=== PATIENT | female | born 1985 | race Caucasian/White ===

== ENCOUNTER 2016-11-27 11:54 | Emergency (ER) | payer OTHER ==
[2016-11-27] MEDS ORDERED: NAPROXEN 250 MG TAB As Ordered ONE (12:28)
--- NOTE | 2016-11-27 14:09 | EDDOCDS ---
Nurse's Notes [facility] Name: Gabriella Escalera Age: 31 yrs Sex: Female : 1985 Arrival Date: 11/27/2016 Time: 11:54 Bed 13 Private MD: NO PRIMARY PHYSICIAN, . Diagnosis: Contusion of right foot Presentation: 11/27 12:11 Presenting complaint: Patient states: Fell getting out of the shower and hit right foot jo3 on toilet. Having pain to dorsal aspect of right foot and difficulty bearing weight. Injury occurred Monday. Adult Sepsis Screening: The patient does not have new or worsening altered mentation. Patient's respiratory rate is less than 22. Systolic blood pressure is greater than 100. Patient has a qSOFA score of 0- Negative Sepsis Screen. Suicide/Homicide risk assessment- the patient denies having any suicidal and/or homicidal ideations and does not present with any other emotional, behavioral or mental health complaints. Status: Patient is not a automotive service director or dependent. Transition of care: patient was not received from another setting of care. 12:11 Acuity: ZULAY Level 4 jo3 12:11 Method Of Arrival: Walkin/Carried/Asstd jo3 Triage Assessment: 12:14 General: Appears in no apparent distress, comfortable, Behavior is appropriate for age, jo3 cooperative, pleasant. Pain: Pain currently is 1 out of 10 on a pain scale. At worst was 10 out of 10 on a pain scale. HIV screening NA for this visit Offered previously. Neurological: Level of Consciousness is awake, alert, Oriented to person, place, time. Respiratory: Airway is patent Respiratory effort is even, unlabored. Derm: Skin is pink, warm & dry. normal. 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 none - PMHx: PCOS; - PSHx: Vessel repair in nose; Tonsillectomy; Adenoidectomy; - Social history: Smoking status: Patient states was never smoker of tobacco. No barriers to communication noted, The patient speaks fluent Wolof, Speaks appropriately for age. - Family history: Not pertinent. - : The pt / caregiver states he / she is not on anticoagulants. Home medication list is obtained from the patient. - Exposure Risk Screening:: None identified. Screenin:24 Screening information is obtained from the patient. Fall risk: No risks identified. dsf Assistance ADL's: requires no assistance with activities of daily living. Abuse/DV Screen: The patient / caregiver reports he/she is: not in a situation that causes fear, pain or injury. Nutritional screening: No deficits noted. Advance Directives: Currently, there is no health care proxy. home support is adequate. Assessment: 12:24 Adult Sepsis Screening: The patient does not have new or worsening altered mentation. dsf Patient's respiratory rate is less than 22. Systolic blood pressure is greater than 100. Patient has a qSOFA score of 0- Negative Sepsis Screen. General: Appears in no apparent distress, Behavior is appropriate for age, cooperative. Pain: Location: dorsum of right foot Pain currently is 1 out of 10 on a pain scale. Quality of pain is described as throbbing, Aggravated by weight bearing. Neurological: Level of Consciousness is awake, alert, Oriented to person, place, time. Cardiovascular: Capillary refill < 3 seconds. Respiratory: Airway is patent Respiratory effort is even, unlabored, Respiratory pattern is regular, symmetrical. Derm: Skin is pink, warm & dry. Musculoskeletal: Circulation, motion, and sensation intact Capillary refill < 3 seconds in right toes Reports pain in dorsum of right foot. 13:33 General: Appears in no apparent distress, Behavior is appropriate for age, cooperative. dsf Neurological: Level of Consciousness is awake, alert. Cardiovascular: Capillary refill < 3 seconds. Respiratory: Airway is patent Respiratory effort is even, unlabored, Respiratory pattern is regular, symmetrical. Derm: Skin is pink, warm & dry. 14:07 General: Appears in no apparent distress, Behavior is cooperative. Pain: Pain currently ld5 is 1 out of 10 on a pain scale. Neurological: Level of Consciousness is awake, confused. Respiratory: Airway is patent Respiratory effort is even, unlabored. Vital Signs: 11:56 BP 162 / 87; Pulse 88; Resp 18 S; Temp 98.1(O); Pulse Ox 100% on R/A; Weight 136.08 kg gr2 (R); Height 5 ft. 6 in. (167.64 cm) (R); Pain 8/10; 14:07 BP 157 / 81; Pulse 81; Resp 18; Temp 98; Pulse Ox 100% on R/A; Pain 1/10; ld5 11:56 Body Mass Index 48.42 (136.08 kg, 167.64 cm) gr2 Vitals: 11:56 Log In Time: November 27, 2016 at 11:56. gr2 ED Course: 11:55 Patient visited by Marcella Goyal. gr2 11:55 Patient moved to Waiting gr2 11:56 NO PRIMARY PHYSICIAN, . is Private Physician. gr2 11:57 Patient moved to Pre RCE mt4 11:58 Patient visited by Marcella Goyal. gr2 12:13 Triage Initiated jo3 12:16 Patient visited by Gabriella Matthews RN. jo3 12:20 Patient moved to 13 kr3 12:21 [facility] le 12:21 Patient visited by Sydney Hope FNP. le 12:21 Patient visited by Sydney Hope FNP. le 12:24 The patient / caregiver is instructed regarding the plan of care and ED course. dsf 12:26 Patient visited by Palak Solis RN. dsf 12:34 Patient visited by Lay Perez PCA. ct3 12:34 Crutch training done. ct3 12:35 Patient moved to Radiology dsf 12:37 Patient moved to 13 dsf 13:04 [facility] Payment Agreement was scanned into [employer] and attached to record. lg 13:34 Patient visited by Palak Solis RN. dsf 13:59 [facility] is Referral Physician. le 13:59 Referral List is Referral Physician. le 14:07 No IV's were initiated during this patient's visit. No procedures done that require ld5 assistance. 14:09 Patient visited by Meliza Denise RN. ld5 Administered Medications: 12:31 Drug: Naproxen 500 mg [naproxen 250 mg tablet (2 tabs)] Route: PO; dsf Order Results: There are currently no results for this order. Outcome: 13:59 Discharge ordered by Provider. le 14:07 Discharge Assessment: Patient awake, alert and oriented x 3. No cognitive and/or ld5 functional deficits noted. Patient verbalized understanding of disposition instructions. patient administered narcotics - no. The following High Risk Discharge criteria are identified: None. Discharged to home ambulatory, with crutches, with significant other. Condition: stable. Discharge instructions given to patient, Instructed on discharge instructions, follow up and referral plans. medication usage, crutch walking, Demonstrated understanding of instructions, crutch walking, Pt was receptive of discharge instructions/ teaching. No special radiology studies were completed. Property :Personal belongings accompany Pt. 14:09 Patient left the ED. ld5 Signatures: Kiki Tomas, Richard Reg Bebe Morales,RN RN kr3 Gabriella MatthewsRN RN jo3 Sydney Hope, CARPENTRY FOREMAN CARPENTRY FOREMAN Cece Quintana mt4 Meliza Denise RN RN ld5 Lay Perez, OVERHEAD CRANE INSPECTOR OVERHEAD CRANE INSPECTOR ct3 Palak Solis,RN RN Marcella Barrow gr2 MTDD
--- NOTE | 2016-11-27 14:09 | EDDOCDS ---
Physician Documentation [facility] Name: Gabriella Escalera Age: 31 yrs Sex: Female : 1985 Arrival Date: 11/27/2016 Time: 11:54 Bed 13 Private MD: NO PRIMARY PHYSICIAN, . Disposition: 11/27 14:02 Critical Care: Critical care not applicable. le Disposition: 11/27/16 13:59 Discharged to Home/Self Care. Impression: Contusion of right foot. - Condition is Stable. - Discharge Instructions: Foot Contusion, Crutch Use. - Medication Reconciliation, Local Pharmacy Hours form. - Follow up: [facility]; When: Call to arrange an appointment; Reason: To establish care. Follow up: Referral List; When: Call to arrange an appointment; Reason: To establish care. - Problem is new. - Symptoms have improved. - Notes: Use Ibuprofen (or other NSAIDS - Aspirin, Aleve, Advil) as needed for pain Return to the ED for any further concerns Historical: - Allergies: No known drug Allergies; - Home Meds: 1. none - PMHx: PCOS; - PSHx: Vessel repair in nose; Tonsillectomy; Adenoidectomy; - Social history: Smoking status: Patient states was never smoker of tobacco. No barriers to communication noted, The patient speaks fluent Turkish, Speaks appropriately for age. - Family history: Not pertinent. - : The pt / caregiver states he / she is not on anticoagulants. Home medication list is obtained from the patient. - Exposure Risk Screening:: None identified. 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 6 in. (167.64 cm) (R); Pain 8/10; 14:07 BP 157 / 81; Pulse 81; Resp 18; Temp 98; Pulse Ox 100% on R/A; Pain 1/10; ld5 11:56 Body Mass Index 48.42 (136.08 kg, 167.64 cm) gr2 MDM: 12:26 Naproxen 500 mg PO once; administer with food or milk ordered. le 12:26 Crutches ordered. le 12:27 Foot, Complete Ordered. EDMS 12:51 Financial registration complete. lg 13:04 [facility] Payment Agreement was scanned into [employer] and attached to record. lg Administered Medications: 12:31 Drug: Naproxen 500 mg [naproxen 250 mg tablet (2 tabs)] Route: PO; dsf Signatures: Dispatcher [employer] EDAR Kiki Tomas, Reg Reg Gabriella MatthewsRN RN jo3 Sydney Hope, PLASMA PROCESSING CENTRIFUGE OPERATOR PLASMA PROCESSING CENTRIFUGE OPERATOR Meliza Dumont RN RN stefan5 Palak SolisRN RN dsf The chart was reviewed and I authenticate all verbal orders and agree with the evaluation and treatment provided.Attachments: 13:04 [facility] Payment Agreement lg MTDD
--- NOTE | 2016-11-27 20:29 | REP ---
Four view right foot series 11/27/2016 Indication: Trauma Comparison: None Findings: There is mild generalized osteopenia in the right foot. There is no acute fracture or dislocation. There are small calcaneal spurs. There is mild generalized subcutaneous edema within the ankle and foot. Impression: right foot without acute fracture, subluxation, or dislocation. Signed by Kailey Bernabe MD 11/27/2016 08:21 P
--- NOTE | 2016-11-29 15:10 | EDDOCDS ---
Physician Documentation [facility] Name: Gabriella Escalera Age: 31 yrs Sex: Female : 1985 Arrival Date: 11/27/2016 Time: 11:54 Bed 13 Private MD: NO PRIMARY PHYSICIAN, . Disposition: 11/27 14:02 Critical Care: Critical care not applicable. le Disposition: 11/27/16 13:59 Discharged to Home/Self Care. Impression: Contusion of right foot. - Condition is Stable. - Discharge Instructions: Foot Contusion, Crutch Use. - Medication Reconciliation, Local Pharmacy Hours form. - Follow up: [facility]; When: Call to arrange an appointment; Reason: To establish care. Follow up: Referral List; When: Call to arrange an appointment; Reason: To establish care. - Problem is new. - Symptoms have improved. - Notes: Use Ibuprofen (or other NSAIDS - Aspirin, Aleve, Advil) as needed for pain Return to the ED for any further concerns Historical: - Allergies: No known drug Allergies; - Home Meds: 1. none - PMHx: PCOS; - PSHx: Vessel repair in nose; Tonsillectomy; Adenoidectomy; - Social history: Smoking status: Patient states was never smoker of tobacco. No barriers to communication noted, The patient speaks fluent Romanian, Speaks appropriately for age. - Family history: Not pertinent. - : The pt / caregiver states he / she is not on anticoagulants. Home medication list is obtained from the patient. - Exposure Risk Screening:: None identified. 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 6 in. (167.64 cm) (R); Pain 8/10; 14:07 BP 157 / 81; Pulse 81; Resp 18; Temp 98; Pulse Ox 100% on R/A; Pain 1/10; ld5 11:56 Body Mass Index 48.42 (136.08 kg, 167.64 cm) gr2 MDM: 12:26 Naproxen 500 mg PO once; administer with food or milk ordered. le 12:26 Crutches ordered. le 12:27 Foot, Complete Ordered. EDMS 12:51 Financial registration complete. lg 13:04 [facility] Payment Agreement was scanned into [employer] and attached to record. lg 22:10 T-Sheet-- Draft Copy was scanned into [employer] and attached to record. klr Administered Medications: 12:31 Drug: Naproxen 500 mg [naproxen 250 mg tablet (2 tabs)] Route: PO; dsf Signatures: Dispatcher [employer] EDCT Kiki Tomas, Reg Reg lg Gabriella Matthews,RN RN jo3 Sydney Hope FNP FNP le Dickerson, LauraRN RN stefan5 Palak Solis RN RN Brittany Rizo The chart was reviewed and I authenticate all verbal orders and agree with the evaluation and treatment provided.Attachments: 13:04 [facility] Payment Agreement lg 22:10 T-Sheet-- Draft Copy klr Chart Complete MTDD
--- NOTE | 2016-11-29 15:10 | EDDOCDS ---
Physician Documentation [facility] Name: Gabriella Escalera Age: 31 yrs Sex: Female : 1985 Arrival Date: 11/27/2016 Time: 11:54 Bed 13 Private MD: NO PRIMARY PHYSICIAN, . Disposition: 11/27 14:02 Critical Care: Critical care not applicable. le Disposition: 11/27/16 13:59 Discharged to Home/Self Care. Impression: Contusion of right foot. - Condition is Stable. - Discharge Instructions: Foot Contusion, Crutch Use. - Medication Reconciliation, Local Pharmacy Hours form. - Follow up: [facility]; When: Call to arrange an appointment; Reason: To establish care. Follow up: Referral List; When: Call to arrange an appointment; Reason: To establish care. - Problem is new. - Symptoms have improved. - Notes: Use Ibuprofen (or other NSAIDS - Aspirin, Aleve, Advil) as needed for pain Return to the ED for any further concerns Historical: - Allergies: No known drug Allergies; - Home Meds: 1. none - PMHx: PCOS; - PSHx: Vessel repair in nose; Tonsillectomy; Adenoidectomy; - Social history: Smoking status: Patient states was never smoker of tobacco. No barriers to communication noted, The patient speaks fluent Occitan, Speaks appropriately for age. - Family history: Not pertinent. - : The pt / caregiver states he / she is not on anticoagulants. Home medication list is obtained from the patient. - Exposure Risk Screening:: None identified. 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 6 in. (167.64 cm) (R); Pain 8/10; 14:07 BP 157 / 81; Pulse 81; Resp 18; Temp 98; Pulse Ox 100% on R/A; Pain 1/10; ld5 11:56 Body Mass Index 48.42 (136.08 kg, 167.64 cm) gr2 MDM: 12:26 Naproxen 500 mg PO once; administer with food or milk ordered. le 12:26 Crutches ordered. le 12:27 Foot, Complete Ordered. EDMS 12:51 Financial registration complete. lg 13:04 [facility] Payment Agreement was scanned into [employer] and attached to record. lg 22:10 T-Sheet-- Draft Copy was scanned into [employer] and attached to record. klr Administered Medications: 12:31 Drug: Naproxen 500 mg [naproxen 250 mg tablet (2 tabs)] Route: PO; dsf Signatures: Dispatcher [employer] EDNJ Kiki Tomas, Reg Reg lg Gabriella Matthews,RN RN jo3 Sydney Hope FNP FNP le Dickerson, LauraRN RN stefan5 Palak Solis RN RN Brittany Rizo The chart was reviewed and I authenticate all verbal orders and agree with the evaluation and treatment provided.Attachments: 13:04 [facility] Payment Agreement lg 22:10 T-Sheet-- Draft Copy klr Chart Complete MTDD
--- NOTE | 2016-11-29 15:10 | EDDOCDS ---
Nurse's Notes [facility] Name: Gabriella Escalera Age: 31 yrs Sex: Female : 1985 Arrival Date: 11/27/2016 Time: 11:54 Bed 13 Private MD: NO PRIMARY PHYSICIAN, . Diagnosis: Contusion of right foot Presentation: 11/27 12:11 Presenting complaint: Patient states: Fell getting out of the shower and hit right foot jo3 on toilet. Having pain to dorsal aspect of right foot and difficulty bearing weight. Injury occurred Monday. Adult Sepsis Screening: The patient does not have new or worsening altered mentation. Patient's respiratory rate is less than 22. Systolic blood pressure is greater than 100. Patient has a qSOFA score of 0- Negative Sepsis Screen. Suicide/Homicide risk assessment- the patient denies having any suicidal and/or homicidal ideations and does not present with any other emotional, behavioral or mental health complaints. Status: Patient is not a customer service rep or dependent. Transition of care: patient was not received from another setting of care. 12:11 Acuity: ZULAY Level 4 jo3 12:11 Method Of Arrival: Walkin/Carried/Asstd jo3 Triage Assessment: 12:14 General: Appears in no apparent distress, comfortable, Behavior is appropriate for age, jo3 cooperative, pleasant. Pain: Pain currently is 1 out of 10 on a pain scale. At worst was 10 out of 10 on a pain scale. HIV screening NA for this visit Offered previously. Neurological: Level of Consciousness is awake, alert, Oriented to person, place, time. Respiratory: Airway is patent Respiratory effort is even, unlabored. Derm: Skin is pink, warm & dry. normal. 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 none - PMHx: PCOS; - PSHx: Vessel repair in nose; Tonsillectomy; Adenoidectomy; - Social history: Smoking status: Patient states was never smoker of tobacco. No barriers to communication noted, The patient speaks fluent Irish, Speaks appropriately for age. - Family history: Not pertinent. - : The pt / caregiver states he / she is not on anticoagulants. Home medication list is obtained from the patient. - Exposure Risk Screening:: None identified. Screenin:24 Screening information is obtained from the patient. Fall risk: No risks identified. dsf Assistance ADL's: requires no assistance with activities of daily living. Abuse/DV Screen: The patient / caregiver reports he/she is: not in a situation that causes fear, pain or injury. Nutritional screening: No deficits noted. Advance Directives: Currently, there is no health care proxy. home support is adequate. Assessment: 12:24 Adult Sepsis Screening: The patient does not have new or worsening altered mentation. dsf Patient's respiratory rate is less than 22. Systolic blood pressure is greater than 100. Patient has a qSOFA score of 0- Negative Sepsis Screen. General: Appears in no apparent distress, Behavior is appropriate for age, cooperative. Pain: Location: dorsum of right foot Pain currently is 1 out of 10 on a pain scale. Quality of pain is described as throbbing, Aggravated by weight bearing. Neurological: Level of Consciousness is awake, alert, Oriented to person, place, time. Cardiovascular: Capillary refill < 3 seconds. Respiratory: Airway is patent Respiratory effort is even, unlabored, Respiratory pattern is regular, symmetrical. Derm: Skin is pink, warm & dry. Musculoskeletal: Circulation, motion, and sensation intact Capillary refill < 3 seconds in right toes Reports pain in dorsum of right foot. 13:33 General: Appears in no apparent distress, Behavior is appropriate for age, cooperative. dsf Neurological: Level of Consciousness is awake, alert. Cardiovascular: Capillary refill < 3 seconds. Respiratory: Airway is patent Respiratory effort is even, unlabored, Respiratory pattern is regular, symmetrical. Derm: Skin is pink, warm & dry. 14:07 General: Appears in no apparent distress, Behavior is cooperative. Pain: Pain currently ld5 is 1 out of 10 on a pain scale. Neurological: Level of Consciousness is awake, confused. Respiratory: Airway is patent Respiratory effort is even, unlabored. Vital Signs: 11:56 BP 162 / 87; Pulse 88; Resp 18 S; Temp 98.1(O); Pulse Ox 100% on R/A; Weight 136.08 kg gr2 (R); Height 5 ft. 6 in. (167.64 cm) (R); Pain 8/10; 14:07 BP 157 / 81; Pulse 81; Resp 18; Temp 98; Pulse Ox 100% on R/A; Pain 1/10; ld5 11:56 Body Mass Index 48.42 (136.08 kg, 167.64 cm) gr2 Vitals: 11:56 Log In Time: November 27, 2016 at 11:56. gr2 ED Course: 11:55 Patient visited by Marcella Goyal. gr2 11:55 Patient moved to Waiting gr2 11:56 NO PRIMARY PHYSICIAN, . is Private Physician. gr2 11:57 Patient moved to Pre RCE mt4 11:58 Patient visited by Marcella Goyal. gr2 12:13 Triage Initiated jo3 12:16 Patient visited by Gabriella Matthews RN. jo3 12:20 Patient moved to 13 kr3 12:21 Sydney Hope FNP is PHCP. le 12:21 Patient visited by Sydney Hope FNP. le 12:21 Patient visited by Sydney Hope FNP. le 12:24 The patient / caregiver is instructed regarding the plan of care and ED course. dsf 12:26 Patient visited by Palak Solis RN. dsf 12:34 Patient visited by Lay Perez PCA. ct3 12:34 Crutch training done. ct3 12:35 Patient moved to Radiology dsf 12:37 Patient moved to 13 dsf 13:04 [facility] [place] Agreement was scanned into [facility] [employer] and attached to record. lg 13:34 Patient visited by Palak Solis RN. dsf 13:59 [facility] is Referral Physician. le 13:59 Referral List is Referral Physician. le 14:07 No IV's were initiated during this patient's visit. No procedures done that require ld5 assistance. 14:09 Patient visited by Meliza Denise RN. ld5 20:57 Foot, Complete Returned. EDMS 22:10 T-Sheet-- Draft Copy was scanned into [employer] and attached to record. klr Administered Medications: 12:31 Drug: Naproxen 500 mg [naproxen 250 mg tablet (2 tabs)] Route: PO; dsf Order Results: Radiology Order: Foot, Complete Test: Foot, Complete REASON FOR EXAMINATION: Trauma; Four view right foot series 11/27/2016; ; Indication: Trauma; ; Comparison: None; ; Findings: There is mild generalized osteopenia in the right foot. There is no; acute fracture or dislocation. There are small calcaneal spurs. There is mild; generalized subcutaneous edema within the ankle and foot.; ; Impression: right foot without acute fracture, subluxation, or dislocation.; ; ; Signed by; Kailey Bernabe MD 11/27/2016 08:21 P; Outcome: 13:59 Discharge ordered by Provider. le 14:07 Discharge Assessment: Patient awake, alert and oriented x 3. No cognitive and/or ld5 functional deficits noted. Patient verbalized understanding of disposition instructions. patient administered narcotics - no. The following High Risk Discharge criteria are identified: None. Discharged to home ambulatory, with crutches, with significant other. Condition: stable. Discharge instructions given to patient, Instructed on discharge instructions, follow up and referral plans. medication usage, crutch walking, Demonstrated understanding of instructions, crutch walking, Pt was receptive of discharge instructions/ teaching. No special radiology studies were completed. Property :Personal belongings accompany Pt. 14:09 Patient left the ED. ld5 Signatures: Dispatcher [employer] EDMS Kiki Tomas, Reg Reg lg Bebe Lagos,RN RN nancy3 Gabriella Matthews,RN RN jo3 Sydney Hope, DOVETAILER DOVETAILER Cece Quintana mt4 Meliza Denise RN RN ld5 Lay Perez, DIGITAL COMPOSER DIGITAL COMPOSER ct3 Palak Solis RN RN Marcella Barrow gr2 Brittany Hopkins Chart Complete MTDD
== END 2016-11-27 14:09 | disposition home or self-care (01) ==
LOC: M ED 11:54
DX: S90.31XA Contusion of right foot, initial encounter (principal); E28.2 Polycystic ovarian syndrome; W01.198A Fall on same level from slipping, tripping and stumbling with subsequent striking against other object, initial encounter; Y92.012 Bathroom of single-family (private) house as the place of occurrence of the external cause; Y93.E1 Activity, personal bathing and showering; Y99.9 Unspecified external cause status

== ENCOUNTER 2018-07-24 15:58 | Emergency (ER) | payer MEDICAID, SELFPAY, OTHER ==
[2018-07-24 17:41] LABS: KETONE, URINE AUTO RFX NEGATIVE (NEGATIVE); LEUKOCYTE ESTERASE UR AUTO RFX NEGATIVE (NEGATIVE); MUCUS, URINE RFX SMALL (NEGATIVE); NITRITE, URINE AUTO RFX NEGATIVE (NEGATIVE); RBC, URINE AUTO RFX 3 /HPF (0-3); SPECIFIC GRAVITY UR AUTO RFX 1.023 (1.002-1.035); SQUAM EPITHELIAL CELL UR AURFX 2 /HPF (0-6); WBC, URINE AUTO RFX 2 /HPF (0-3)
[2018-07-24 17:44] LABS: HEMATOCRIT 39.6 % (36.0-47.0); HEMOGLOBIN 12.6 g/dl (12.0-15.5); MEAN CORPUSCULAR HEMOGLOBIN 27.8 pg (27.0-33.0); MEAN CORPUSCULAR HGB CONC 31.8 g/dl (32.0-36.5); MEAN CORPUSCULAR VOLUME 87.4 fl (80.0-96.0); PLATELET COUNT, AUTOMATED 301 10^3/uL (150-450); RED BLOOD COUNT 4.53 10^6/uL (4.00-5.40); RED CELL DISTRIBUTION WIDTH 12.1 % (11.5-14.5); WHITE BLOOD COUNT 15.4 10^3/uL (4.0-10.0)
[2018-07-24 17:46] LABS: ADD MANUAL DIFFER YES; DIFF SLIDE NUMBER 371; POSITIVE MORPH POS FLAG
[2018-07-24 18:27] LABS: ATYPICAL LYMPH 31 % (0-5); LYMPHOCYTES 10 % (16-52); MONOCYTES 3 % (0-8); NEUTROPHILS 56 % (35-75)
[2018-07-24 18:28] LABS: PLATELET ESTIMATE NORMAL (NORMAL)
== END 2018-07-24 19:10 | disposition home or self-care (01) ==
LOC: M ED 15:58
DX: N93.8 Other specified abnormal uterine and vaginal bleeding (principal)
CPT/HCPCS: 85025

== ENCOUNTER 2018-09-15 12:54 | Emergency (ER) | payer MEDICAID ==
[2018-09-15] MEDS: NS 1,000 ML IV (13:43)
[2018-09-15 13:47] LABS: BASO % 0.2 % (0.0-1.0); EOS # 0.2 10^3/uL (0.0-0.50); EOS % 1.5 % (0.0-3.0); HEMATOCRIT 37.8 % (36.0-47.0); IMMATURE GRANULOCYTE % 0.3 % (0-3.0); LYMPH # 3.4 10^3/uL (1.5-4.5); LYMPH % 26.2 % (24.0-44.0); MEAN CORPUSCULAR HEMOGLOBIN 27.8 pg (27.0-33.0); MEAN CORPUSCULAR HGB CONC 31.7 g/dl (32.0-36.5); MEAN CORPUSCULAR VOLUME 87.7 fl (80.0-96.0); MONO # 0.7 10^3/uL (0.0-0.8); MONO % 5.8 % (0.0-5.0); NEUTROPHILS # 8.5 10^3/uL (1.8-7.7); PLATELET COUNT, AUTOMATED 281 10^3/uL (150-450); RED BLOOD COUNT 4.31 10^6/uL (4.00-5.40); RED CELL DISTRIBUTION WIDTH 12.4 % (11.5-14.5); WHITE BLOOD COUNT 12.8 10^3/uL (4.0-10.0)
[2018-09-15 14:00] LABS: CONTROL LINE HCG INT CTR LINE PRESENT; HCG, SERUM QUALITATIVE NEGATIVE (NEGATIVE)
[2018-09-15 14:23] LABS: ANION GAP 9 MEQ/L (8-16); BLOOD UREA NITROGEN 6 MG/DL (7-18); CALCIUM LEVEL 8.5 MG/DL (8.5-10.1); CARBON DIOXIDE LEVEL 25 MEQ/L (21-32); CHLORIDE LEVEL 105 MEQ/L (98-107); CREATININE FOR GFR 0.71 MG/DL (0.55-1.30); FREE T4 0.98 NG/DL (0.76-1.46); GLOMERULAR FILTRATION RATE > 60.0 (>60); GLUCOSE, FASTING 232 MG/DL (70-100); POTASSIUM SERUM 3.7 MEQ/L (3.5-5.1); SODIUM LEVEL 139 MEQ/L (136-145); THYROID STIMULATING HORMONE 0.997 uIU/ML (0.358-3.740)
[2018-09-15 14:46] LABS: BILIRUBIN, URINE MANUAL NEGATIVE (NEGATIVE); BLOOD URINE MANUAL RFX POSITIVE (NEGATIVE); GLUCOSE, URINE (UA) MANUAL 2+(250 MG/DL) mg/dL (NEGATIVE); KETONE, URINE MANUAL NEGATIVE (NEGATIVE); NITRITE, URINE MANUAL RFX NEGATIVE (NEGATIVE); PROTEIN, URINE MANUAL REFLEX NEGATIVE (NEGATIVE); UROBILINOGEN, URINE MANUAL NORMAL (NORMAL)
[2018-09-15 14:47] LABS: BACTERIA, URINE QNS; HYALINE CAST, URINE QNS /lpf (0-1); MICROSCOPIC INDICATED? RFX NO (NO); RBC, URINE QNS /hpf (0-3); SQUAMOUS EPITHELIAL CELL URINE QNS /hpf (SMALL AMT); WBC, URINE MAN RFX QNS /hpf (0-3)
[2018-09-15 15:11] LABS: MICROSCOPIC EXAM QNS
== END 2018-09-15 15:47 | disposition home or self-care (01) ==
LOC: M ED 12:54
DX: N93.9 Abnormal uterine and vaginal bleeding, unspecified (principal); N83.209 Unspecified ovarian cyst, unspecified side
CPT/HCPCS: 76856

== ENCOUNTER 2019-03-04 11:56 | Emergency (ER) | payer OTHER ==
[~2019-03-04] VITALS: Ht 165.1 cm; Wt 148.1 kg
[~2019-03-04 11:56] MED LIST: CIPR-249 PO
[2019-03-04 13:50] VITALS: BP 154/92
[2019-03-04] MEDS ORDERED: ROBA500T PO (13:52)
[2019-03-04] MEDS ORDERED: NAPR500T6 PO (13:52)
== END 2019-03-04 13:59 | disposition home or self-care (01) ==
LOC: M ED 11:56
DX: M54.5 Low back pain (principal)

== ENCOUNTER → 2023-12-06 | Outpatient (CLI) | payer OTHER ==
[~2023-12-06] MED LIST changes: +NAPR500T6 PO; +ROBA500T PO
[2023-12-06 18:04] LABS: BASO # 0.1 10^3/uL (0.0-0.2); BASO % 0.5 % (0.0-1.0); EOS # 0.1 10^3/uL (0.0-0.5); EOS % 0.7 % (0.0-3.0); HEMATOCRIT 35.7 % (36.0-47.0); HEMOGLOBIN 10.8 g/dl (12.0-15.5); LYMPH # 4.1 10^3/uL (1.5-5.0); LYMPH % 26.6 % (24.0-44.0); MEAN CORPUSCULAR HEMOGLOBIN 26.1 pg (27.0-33.0); MEAN CORPUSCULAR HGB CONC 30.3 g/dl (32.0-36.5); MEAN CORPUSCULAR VOLUME 86.2 fl (80.0-96.0); MONO # 1.1 10^3/uL (0.0-0.8); NEUTROPHILS % 64.7 % (36.0-66.0); PLATELET COUNT, AUTOMATED 373 10^3/uL (150-450); RED BLOOD COUNT 4.14 10^6/uL (4.00-5.40); WHITE BLOOD COUNT 15.4 10^3/uL (4.0-10.0)
[2023-12-06 18:31] LABS: FREE T4 1.09 NG/DL (0.89-1.76)
[2023-12-06 18:32] LABS: FERRITIN 9.8 NG/ML (7.3-270.7)
[2023-12-06 18:33] LABS: THYROID STIMULATING HORMONE 1.076 uIU/ML (0.55-4.78)
[2023-12-06 19:34] LABS: HEMOGLOBIN A1c 7.8 % (4.0-6.0)
== END ==
LOC: M PLALAB 16:19
PROVIDERS: ATTEND Nurse Practitioner Family
DX: N93.9 Abnormal uterine and vaginal bleeding, unspecified (principal)

== ENCOUNTER → 2024-02-22 | Outpatient (REF) | payer OTHER | LOC: M SFHCWAGY 13:15 | PROVIDERS: ATTEND Nurse Practitioner Family | DX: Z12.4 Encounter for screening for malignant neoplasm of cervix (principal); R87.615 Unsatisfactory cytologic smear of cervix ==

== ENCOUNTER → 2024-02-22 | Outpatient (CLI) | payer OTHER | LOC: M WHC 08:46 | PROVIDERS: ATTEND Nurse Practitioner Family | DX: Z12.31 Encounter for screening mammogram for malignant neoplasm of breast (principal) ==

== ENCOUNTER → 2024-04-10 | Outpatient (CLI) | payer OTHER | LOC: M RAD 16:17 | PROVIDERS: ATTEND Nurse Practitioner Family | DX: N83.202 Unspecified ovarian cyst, left side (principal) ==

== ENCOUNTER → 2024-04-24 | Outpatient (CLI) | payer OTHER ==
[2024-04-24 19:19] LABS: BASO # 0.1 10^3/uL (0.0-0.2); BASO % 0.4 % (0.0-1.0); EOS # 0.2 10^3/uL (0.0-0.5); EOS % 1.1 % (0.0-3.0); HEMATOCRIT 32.9 % (36.0-47.0); HEMOGLOBIN 9.7 g/dl (12.0-15.5); LYMPH # 3.3 10^3/uL (1.5-5.0); LYMPH % 23.8 % (24.0-44.0); MEAN CORPUSCULAR HEMOGLOBIN 24.4 pg (27.0-33.0); MEAN CORPUSCULAR HGB CONC 29.5 g/dl (32.0-36.5); MEAN CORPUSCULAR VOLUME 82.9 fl (80.0-96.0); MONO # 1.1 10^3/uL (0.0-0.8); MONO % 7.8 % (2.0-8.0); NEUTROPHILS # 9.1 10^3/uL (1.5-8.5); NEUTROPHILS % 66.6 % (36.0-66.0); PLATELET COUNT, AUTOMATED 420 10^3/uL (150-450); RED BLOOD COUNT 3.97 10^6/uL (4.00-5.40); WHITE BLOOD COUNT 13.7 10^3/uL (4.0-10.0)
[2024-04-24 19:30] LABS: ALBUMIN 3.4 G/DL (3.2-5.2); ALKALINE PHOSPHATASE 93 U/L (46-116); ALT/SGPT 16 U/L (7.0-40); AST/SGOT 11 U/L (<34); BILIRUBIN,TOTAL 0.4 MG/DL (0.3-1.2); BLOOD UREA NITROGEN 10 MG/DL (9-23); CALCIUM LEVEL 9.4 MG/DL (8.5-10.1); CARBON DIOXIDE LEVEL 27 MMOL/L (20-31); CHLORIDE LEVEL 107 MMOL/L (98-107); CHOLESTEROL LEVEL 139 MG/DL (<200); CHOLESTEROL RISK RATIO 3.75 (<5); CREATININE FOR GFR 0.72 MG/DL (0.55-1.30); GLOMERULAR FILTRATION RATE > 60.0 (>58); GLUCOSE, FASTING 96 MG/DL (60-100); LDL CHOLESTEROL 91.8 MG/DL (<100); POTASSIUM SERUM 4.7 MMOL/L (3.5-5.1); SODIUM LEVEL 140 MMOL/L (136-145); TOTAL PROTEIN 6.7 G/DL (5.7-8.2); TRIGLYCERIDES LEVEL 51 MG/DL (<150)
[2024-04-24 19:31] LABS: TOTAL 25(OH) VITAMIN D 14.6 NG/ML (20.0-100.0)
[2024-04-24 19:43] LABS: HEMOGLOBIN A1c 5.7 % (4.0-6.0)
== END ==
LOC: M PLALAB 14:41
PROVIDERS: ATTEND Nurse Practitioner Family
DX: E11.9 Type 2 diabetes mellitus without complications (principal)

== ENCOUNTER → 2024-04-29 | Outpatient (REF) | payer OTHER | LOC: M SFHCWAGY 17:17 | PROVIDERS: ATTEND Nurse Practitioner Family | DX: Z12.4 Encounter for screening for malignant neoplasm of cervix (principal); R87.615 Unsatisfactory cytologic smear of cervix ==

== ENCOUNTER → 2024-05-23 | Outpatient (CLI) | payer OTHER ==
[2024-05-23 13:40] LABS: PERCENT SATURATION 5.3 % (13.2-45.0)
[2024-05-23 13:42] LABS: BASO # 0.1 10^3/uL (0.0-0.2); BASO % 0.4 % (0.0-1.0); EOS # 0.2 10^3/uL (0.0-0.5); EOS % 1.2 % (0.0-3.0); FERRITIN 4.6 NG/ML (7.3-270.7); HEMOGLOBIN 10.1 g/dl (12.0-15.5); LYMPH # 3.1 10^3/uL (1.5-5.0); LYMPH % 22.4 % (24.0-44.0); MEAN CORPUSCULAR HEMOGLOBIN 24.1 pg (27.0-33.0); MEAN CORPUSCULAR HGB CONC 29.7 g/dl (32.0-36.5); MEAN CORPUSCULAR VOLUME 81.1 fl (80.0-96.0); MONO # 0.8 10^3/uL (0.0-0.8); MONO % 5.9 % (2.0-8.0); NEUTROPHILS # 9.7 10^3/uL (1.5-8.5); NEUTROPHILS % 69.8 % (36.0-66.0); PLATELET COUNT, AUTOMATED 403 10^3/uL (150-450); RED BLOOD COUNT 4.19 10^6/uL (4.00-5.40); WHITE BLOOD COUNT 13.9 10^3/uL (4.0-10.0)
== END ==
LOC: M PLALAB 09:16
PROVIDERS: ATTEND Nurse Practitioner Family
DX: D50.8 Other iron deficiency anemias (principal)

== ENCOUNTER 2024-06-19 12:26 | Outpatient (CLI) | payer OTHER ==
[~2024-06-19] VITALS: Ht 167.6 cm; Wt 128.0 kg
[~2024-06-19 12:26] MED LIST changes: +ALBUTEROL SULFATE 2.5MG/0.5ML INH NEB SOLN INH PRN; +EPINEPHrine INJ 1 MG/ML 1ML AMP IM PRN; +diphenhydrAMINE 50MG/ML VIAL IV PRN; +methylPREDNISolone 125MG 2ML VIAL IV PRN
[2024-06-19] MEDS ORDERED: NS 1,000 ML IV SCH (12:30)
[2024-06-19 12:35] VITALS: BP 124/59; O2SAT 99
[2024-06-19] MEDS: diphenhydrAMINE 50MG CAP PO ONE (12:40)
[2024-06-19] MEDS: ACETAMINOPHEN TAB 650MG DOSE (2X325MG) PO ONE (12:40)
[2024-06-19] MEDS: IRON SUCROSE 250 MG in NS 237.5 ML IV ONE (13:30)
[2024-06-19 14:55] VITALS: BP 122/75; O2SAT 96
== END 2024-06-19 15:25 ==
LOC: M INFU 12:26
PROVIDERS: ATTEND Nurse Practitioner Family
DX: D50.9 Iron deficiency anemia, unspecified (principal)
CPT/HCPCS: 96365; J1756